=== PATIENT | male | born 1995 | race Caucasian/White ===

== ENCOUNTER 2019-04-22 09:36 | Emergency (ER) | payer OTHER ==
[2019-04-22 09:41] VITALS: BP 113/58; PULSE 105; TEMP 100; BMI 27.4
[2019-04-22] MEDS ORDERED: IBUPROFEN 400 MG TABLET (FP) PO ONE ×2 (10:09→10:12)
--- NOTE | 2019-04-22 10:12 | PDOC ---
History of Present Illness - General Chief Complaint: Cold Symptoms Stated Complaint: FLU SYMPTOMS Time Seen by Provider: 04/22/19 09:42 History Source: Patient - History of Present Illness Timing/Duration: reports: yesterday Past History - Past Medical History Allergies/Adverse Reactions: Allergies Allergy/AdvReac Type Severity Reaction Status Date / Time No Known Allergies Allergy Verified 04/22/19 09:41 Home Medications: Ambulatory Orders NK [No Known Home Medication] 04/22/19 COPD: No - Immunization History Immunization Up to Date: No - Psycho Social/Smoking Cessation Hx Smoking History: Never smoked Have you smoked in the past 12 months: No Information on smoking cessation initiated: No Hx Alcohol Use: No Drug/Substance Use Hx: No Review of Systems - Review of Systems Constitutional: Yes: Fever, Malaise HEENTM: No: Ear Pain, Throat Pain Respiratory: Yes: Cough. No: Shortness of Breath Cardiac (ROS): No: Chest Pain Musculoskeletal: No: Neck Pain Neurological: No: Headache *Physical Exam - Vital Signs Last Vital Signs Temp Pulse Resp BP Pulse Ox 100.0 F H 105 H 18 113/58 L 97 04/22/19 09:39 04/22/19 09:39 04/22/19 09:39 04/22/19 09:39 04/22/19 09:39 - Physical Exam General Appearance: Yes: Appropriately Dressed, Mild Distress HEENT: positive: Normal ENT Inspection, Normal Voice, TMs Normal, Pharynx Normal. negative: Scleral Icterus (R), Scleral Icterus (L) Neck: positive: Supple. negative: Tender, Lymphadenopathy (R), Lymphadenopathy (L) Respiratory/Chest: positive: Lungs Clear, Normal Breath Sounds. negative: Respiratory Distress Cardiovascular: positive: Regular Rate, S1, S2 Integumentary: positive: Dry, Warm Neurologic: positive: Fully Oriented, Alert, Normal Mood/Affect Medical Decision Making - Medical Decision Making 04/22/19 10:11 23-year-old male no significant history here with body aches cough and fever chills since yesterday. Took Tylenol this a.m. Did not get the flu vaccine. No recent travel see exam Viral illness, r/o flu -motrin for low grade fever in ED 04/22/19 10:51 Flu negative. DC with supportive treatment Discharge - Discharge Information Problems reviewed: Yes Clinical Impression/Diagnosis: Viral syndrome Condition: Good Disposition: HOME - Follow up/Referral - Patient Discharge Instructions Patient Printed Discharge Instructions: DI for Viral Syndrome Additional Instructions: Tiene neeraj enfermedad viral, caroline no tiene gripe. Descanse, maria elena muchos lquidos y tome Motrin o Tylenol segn sea necesario para el dolor o la fiebre. Print Language: MOROCCAN - Post Discharge Activity Work/Back to School Note: Back to Work
== END 2019-04-22 11:04 | disposition home or self-care (01) ==
LOC: JERFT 09:36
DX: B34.9 Viral infection, unspecified (principal)
CPT/HCPCS: 87804; 99282-25

== ENCOUNTER 2021-03-20 14:51 | Emergency (ER) | payer OTHER ==
[2021-03-20 15:01] VITALS: BP 124/82; PULSE 79; TEMP 98; BMI 24.6
[2021-03-20] MEDS ORDERED: FAMOTIDINE 20 MG TABLET PO ONE (17:38)
[2021-03-20] MEDS ORDERED: DEXAMETHASONE LIQUID 0.5 MG/5 ML PO ONE (17:38)
[2021-03-20] MEDS ORDERED: diphenhydrAMINE HCL 25 MG CAPSULE (FP) PO ONE ×2 (17:38→17:44)
[2021-03-20] MEDS ORDERED: DEXAMETHASONE SOD PHOSPHATE 10 MG/1 ML VIAL ONE (17:44)
[2021-03-20] MEDS ORDERED: FAMOTIDINE 20 MG TABLET ONE (17:45)
== END 2021-03-20 18:36 | disposition home or self-care (01) ==
LOC: JERFT 14:51
DX: L23.9 Allergic contact dermatitis, unspecified cause (principal)
CPT/HCPCS: 99283-25